=== PATIENT | male | born 1980 | race Two or more races ===

== ENCOUNTER 2020-01-16 12:29 | Emergency (ER) | payer MEDICAID ==
[~2020-01-16] VITALS: Ht 175.3 cm; Wt 77.1 kg
[2020-01-16 12:31] VITALS: BP 146/94
--- NOTE | 2020-01-16 12:35 | NUR ---
Patient ambulated to bed 5
[2020-01-16] MEDS ORDERED: LIDOCAINE MPF 1% 5 ML ONE (13:12)
[2020-01-16] MEDS: BACITRACIN OINT 500 UNITS/GM PKT TP ONE (13:41)
[2020-01-16] MEDS: LIDOCAINE MPF 1% 10 MG/ML VIAL INJ ONE (13:43)
--- NOTE | 2020-01-16 13:46 | NUR ---
BACITRACIN APPLIED TO SUTURED WOUND ON LEFT FOREARM.
[2020-01-16 13:52] VITALS: BP 146/94
--- NOTE | 2020-01-16 13:53 | NUR ---
Patient discharged with v/s stable. Written and verbal after care instructions given and explained. Patient verbalized understanding. Ambulatory with steady gait. All questions addressed prior to discharge. Advised to follow up with PMD.
== END 2020-01-16 13:53 | disposition home or self-care (01) ==
LOC: MED 12:29
DX: S51.812A Laceration without foreign body of left forearm, initial encounter (principal); W11.XXXA Fall on and from ladder, initial encounter; Y93.H2 Activity, gardening and landscaping; Y92.89 Other specified places as the place of occurrence of the external cause; Y99.8 Other external cause status
CPT/HCPCS: 12002; 90471; 90715; 99283; J2001